=== PATIENT | female | born 1985 | race Native Hawaiian/Other Pacific Islander ===

== ENCOUNTER 2019-02-15 21:59 | Emergency (ER) | payer OTHER ==
[~2019-02-15] VITALS: Ht 170.2 cm; Wt 68.0 kg
[2019-02-15] MEDS ORDERED: BUPR8SUB2 PO (22:21)
[2019-02-15 23:18] VITALS: BP 127/88; TEMP 97.9
== END 2019-02-15 23:45 | disposition home or self-care (01) ==
LOC: ED 21:59
DX: G43.909 Migraine, unspecified, not intractable, without status migrainosus (principal)
CPT/HCPCS: 96372; 99283; J1200; J1885; J2405